=== PATIENT | male | born 2000 | race Caucasian/White ===

== ENCOUNTER 2021-05-03 08:16 | Emergency (ER) | payer MEDICAID ==
[2021-05-03 08:39] VITALS: BP 138/65; PULSE 77
[2021-05-03] MEDS ORDERED: Ketorolac 60 MG/2 ML SDV IM ONE (08:51)
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
== END 2021-05-03 09:53 | disposition home or self-care (01) ==
LOC: JP.ED 08:16
DX: G43.909 Migraine, unspecified, not intractable, without status migrainosus (principal)
CPT/HCPCS: 96372; 99283; J1885

== ENCOUNTER 2021-10-23 06:41 | Emergency (ER) | payer MEDICAID ==
[2021-10-23 07:02] VITALS: BP 118/67; PULSE 79
[2021-10-23] MEDS ORDERED: Tetracaine HCl/PF 0.5% 4 ML Bottle EYERT ONE (07:04)
[2021-10-23] MEDS ORDERED: Ibuprofen 600 MG Tab PO ONE (07:13)
[2021-10-23] MEDS ORDERED: Acetaminophen 500 MG Tab PO ONE (07:13)
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
== END 2021-10-23 07:30 | disposition home or self-care (01) ==
LOC: JP.ED 06:41
DX: S05.01XA Injury of conjunctiva and corneal abrasion without foreign body, right eye, initial encounter (principal); Z79.899 Other long term (current) drug therapy; W22.09XA Striking against other stationary object, initial encounter
CPT/HCPCS: 99283; A9270

== ENCOUNTER 2023-10-13 20:48 | Emergency (ER) | payer MEDICAID ==
[2023-10-13 21:53] LABS: BASOPHILS ABSOLUTE AUTO 0.05 K/uL (0.00-0.10); BASOPHILS PERCENT AUTO 0.8 % (0.1-1.3); EOSINOPHILS ABSOLUTE AUTO 0.08 K/uL (0.00-0.40); EOSINOPHILS PERCENT AUTO 1.2 % (0.0-5.4); HEMATOCRIT 40.8 % (38.4-49.7); HEMOGLOBIN 15.2 g/dL (12.9-16.9); IMMATURE GRAN ABSOLUTE AUTO 0.03 K/uL (0.00-0.23); IMMATURE GRAN PERCENT AUTO 0.5 % (0.0-0.7); LYMPHOCYTES ABSOLUTE AUTO 2.57 K/uL (0.8-3.3); LYMPHOCYTES PERCENT AUTO 39.5 % (11.4-47.7); MEAN CORPUSCULAR HEMOGLOBIN 31.3 pg (31.6-35.5); MEAN CORPUSCULAR HGB CONC 37.3 g/dL (31.6-35.5); MEAN CORPUSCULAR VOLUME 84.1 fL (81.4-99.0); MONOCYTES ABSOLUTE AUTO 0.51 K/uL (0.20-0.90); MONOCYTES PERCENT AUTO 7.8 % (3.3-12.6); NEUTROPHILS ABSOLUTE AUTO 3.27 K/uL (1.0-7.6); NEUTROPHILS PERCENT AUTO 50.2 % (40.0-78.1); PLATELET COUNT,PLT 223 K/uL (130-375); RED BLOOD CELL COUNT 4.85 M/uL (4.14-5.76); WHITE BLOOD CELL COUNT,WBC 6.5 K/uL (3.2-11.0)
[2023-10-13 22:00] VITALS: BP 138/77; PULSE 79
[2023-10-13 22:15] LABS: A/G RATIO 1.3 (1.2-2.2); ALANINE AMINOTRANSFERASE,ALT 27 U/L (12-78); ALBUMIN 3.8 g/dL (3.4-5.0); ALKALINE PHOSPHATASE 84 U/L (46-116); ASPARTATE AMNIOTRANSFERASE,AST 16 U/L (15-37); BILIRUBIN TOTAL 0.6 mg/dL (0.2-1.0); BLOOD UREA NITROGEN,BUN 15 mg/dL (7-18); CALCIUM 8.9 mg/dL (8.5-10.1); CARBON DIOXIDE,CO2 26 mmol/L (21-32); CHLORIDE,CL 103 mmol/L (100-108); CREATININE 0.9 mg/dL (0.8-1.3); EST CRCL DRUG DOSING (CG) 158.13 mL/min; ESTIMATED GFR 122 mL/min (>60); GLUCOSE RANDOM 98 mg/dL (74-106); POTASSIUM,K 3.9 mmol/L (3.6-5.2); PROTEIN TOTAL,TP 6.8 g/dL (6.4-8.2); SODIUM,NA 139 mmol/L (140-148); TROPONIN I HIGH SENSITIVITY 4.5 pg/mL (<=60.3)
[2023-10-13 22:19] LABS: ANION GAP 13.9 mmol/L (5.0-14.0)
== END 2023-10-13 22:51 | disposition home or self-care (01) ==
LOC: JP.ED 20:48
DX: R07.89 Other chest pain (principal); F17.210 Nicotine dependence, cigarettes, uncomplicated
CPT/HCPCS: 36415; 71046; 71046-26; 80053; 84484; 85025; 85379; 99284